=== PATIENT | female | born 1975 | race Caucasian/White ===

== ENCOUNTER 2017-11-28 08:34 | Emergency (ER) | payer BC, OTHER ==
[2017-11-28] MEDS ORDERED: Famotidine 20 MG/2 ML SDV IVPUSH ONE (08:57)
[2017-11-28] MEDS ORDERED: Pantoprazole 40 MG Vial IVPUSH ONE (08:57)
[2017-11-28] MEDS ORDERED: Lactated Ringers 1,000 ML IV ONE (08:57)
[2017-11-28] MEDS ORDERED: Ondansetron 4 MG/2 ML SDV IVPUSH ONE (08:57)
--- NOTE | 2017-11-28 08:57 | EDM.PDOC ---
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 B-1 IM 11/28/17 10:35 100 mg ONETIME ONE Administration - Radiology Interpretation Free Text/Narrative:: Heart monitor shows normal sinus rhythm with average heart rate in the high 50s to 60s with no ectopy or arrhythmia. Secondary to patient's tremors artifactual recording of pulses in the 100s by telemetry Acute abdominal x-rays shows evidence of probable mild pulmonary obstructive disease with no cardiomegaly, pulmonary infiltrates, CHF, free air, fluid levels , ileus, obstruction, intra-abdominal calcifications, etc. Mild amount of stool present. Large gastric bubble with otherwise nonspecific gaseous pattern Departure - Departure Time of Disposition: 11:10 Disposition: DC/Tfer to Acute Hospital 02 Condition: Fair Clinical Impression: Hypokalemia, Alcohol abuse, Right bundle branch block (RBBB), Hypomagnesemia, Dehydration, Mixed anxiety depressive disorder, Hypothyroidism (acquired), Macrocytosis without anemia, Bulimia nervosa, Elevated LFTs, Lactic acid increased Abdominal pain Qualifiers: Abdominal location: generalized Qualified Code(s): R10.84 - Generalized abdominal pain - Discharge Information Referrals: Fannie Villafana PA [Primary Care Provider] - Forms: ED Department Discharge, Interfacility Transfer [facility] Additional Instructions: 1. Have your mother drive you to [facility] for direct admission 2. Okay to have ice chips and sips of water in route but no other significant food intake 3. Sedation precautions as discussed - Problem List & Annotations (1) Abdominal pain SNOMED Code(s): 56681157 Code(s): R10.9 - UNSPECIFIED ABDOMINAL PAIN Status: Acute Priority: High Current Visit: Yes Onset Date: 11/27/17 Annotation/Comment:: Nonspecific abdominal pain with no direct evidence of pancreatitis despite elevated LFTs with normal lipase and amylase. Continue to observe her abdominal status closely with consideration of further workup, including possible abdominal ultrasound, CT scan of the abdomen and pelvis, etc. depending on her clinical course. Telephone consultation with [facility] initially at 10: 30 a.m. and then at 10:[address] Lozada, hospitalist, who does accept the patient for direct admission by private automobile, with no further treatment recommendations given. Note high-dose IV Pepcid and IV Protonix given as GI prophylaxis Qualifiers: Abdominal location: generalized Qualified Code(s): R10.84 - Generalized abdominal pain (2) Alcohol abuse SNOMED Code(s): 32970630 Code(s): F10.10 - ALCOHOL ABUSE, UNCOMPLICATED Status: Chronic Priority: High Current Visit: Yes Annotation/Comment:: Long history of alcohol abuse as above with relapse since her divorce in September 2017. Emotional support provided. Recommend psychiatric consultation by accepting providers. Only mildly increased alcohol level as above. Some evidence of withdrawal symptoms including tremors with IV Ativan also given. No previous history of alcohol- induced seizures. She seems open to alcohol treatment. (3) Bulimia nervosa SNOMED Code(s): 76872941 Code(s): F50.2 - BULIMIA NERVOSA Status: Chronic Priority: Medium Current Visit: Yes Annotation/Comment:: Exacerbation of her bulimia since September 2017, including yesterday evening as above. (4) Dehydration SNOMED Code(s): 83284801 Code(s): E86.0 - DEHYDRATION Status: Acute Priority: Medium Current Visit: Yes Onset Date: 11/28/17 Annotation/Comment:: Some mild hypotension secondary to her bulimia, nausea/emesis, etc. with overall good response to 1 L IV bolus of lactated Ringer's. Further IV hydration depending on her clinical course with the patient tolerating ice chips prior to transfer. No significant nausea or additional episode of emesis in the emergency room with good response to IV Zofran (5) Hypokalemia SNOMED Code(s): 35850013 Code(s): E87.6 - HYPOKALEMIA Status: Acute Priority: Medium Current Visit: Yes Annotation/Comment:: IV lactated Ringer's as above. Note bulimia and additional and nausea/emesis as above. Change to observe closely by accepting providers (6) Hypomagnesemia SNOMED Code(s): 003786003 Code(s): E83.42 - HYPOMAGNESEMIA Status: Acute Priority: Medium Current Visit: Yes Onset Date: 11/28/17 Annotation/Comment:: Consider magnesium oxide supplementation (7) Hypothyroidism (acquired) SNOMED Code(s): 163001267 Code(s): E03.9 - HYPOTHYROIDISM, UNSPECIFIED Status: Acute Priority: Medium Current Visit: Yes Onset Date: 11/28/17 Annotation/Comment:: Newly diagnosed. Patient would benefit from low-dose Synthroid therapy with close follow-up by regular providers with recommended TSH in about 4 weeks. (8) Macrocytosis without anemia SNOMED Code(s): 880024239 Code(s): D75.89 - OTHER SPECIFIED DISEASES OF BLOOD AND BLOOD-FORMING ORGANS Status: Acute Priority: Medium Current Visit: Yes Onset Date: 11/28/17 Annotation/Comment:: Normal vitamin B-12 and folate acid levels as above with probable thiamine deficiency secondary to her alcohol abuse. Thiamine 100 mg given IM in the emergency room (9) Mixed anxiety depressive disorder SNOMED Code(s): 721605519 Code(s): F41.8 - OTHER SPECIFIED ANXIETY DISORDERS Status: Acute Priority : High Current Visit: Yes Annotation/Comment:: Note significant exacerbation since her divorce in September 2017. Emotional support provided. Psychiatric consultation recommended as above. She does have some outpatient psychotherapy available with last visit 2 days ago, however next evaluation not scheduled until late November. She denies any suicidal ideation, etc. (10) Right bundle branch block (RBBB) SNOMED Code(s): 67792411 Code(s): I45.10 - UNSPECIFIED RIGHT BUNDLE-BRANCH BLOCK Status: Chronic Priority: Medium Current Visit: Yes Onset Date: 01/28/13 Annotation/ Comment:: Known history of complete right bundle branch block with questionable anterior wall ischemia with no recent chest pain or anginal type symptoms. In addition, note stable chronic bradycardia secondary to her athletic condition with patient previously running marathons, etc. (11) Lactic acid increased SNOMED Code(s): 78734803 Code(s): E87.2 - ACIDOSIS Status: Acute Priority: High Current Visit: Yes Onset Date: 11/28/17 Annotation/Comment:: No evidence of sepsis by clinical exam, etc. Recommend repeat lactic acid level shortly after admission (12) Elevated LFTs SNOMED Code(s): 063209769 Code(s): R79.89 - OTHER SPECIFIED ABNORMAL FINDINGS OF BLOOD CHEMISTRY Status: Acute Priority: High Current Visit: Yes Onset Date: 11/28/17 Annotation/Comment:: Elevated LFTs likely secondary to alcohol abuse. Further GI workup as above - Problem List Review Problem List Initiated/Reviewed/Updated: Yes - My Orders Last 24 Hours: My Active Orders 11/28/17 08:45 CULTURE BLOOD [BC] Stat 11/28/17 08:57 Peripheral IV Care [RC] . DIRECTED Abdomen Series w Chest 1V [CR] Stat CULTURE URINE [RM] Stat H PYLORI STOOL ANTIGEN [MREF] Urgent UA W/MICROSCOPIC [URIN] Urgent Sodium Chloride 0.9% [Saline Flush] 10 ml FLUSH ASDIRECTED PRN Blood Culture x2 Reflex Set [OM.PC] Urgent Obtain Past Medical Record [OM.PC] Urgent Peripheral IV Insertion Adult [OM.PC] Stat Resuscitation Status Stat 11/28/17 08:58 Cardiac Monitoring [RC] . DIRECTED 11/28/17 09:15 CULTURE BLOOD [BC] Stat 11/28/17 09:46 EKG Documentation Completion [RC] ASDIRECTED 11/28/17 10:50 Communication Order [RC] ROUTINE 11/28/17 Breakfast Nothing Per Oral Diet [DIET] - Assessment/Plan Last 24 Hours: My Active Orders 11/28/17 08:45 CULTURE BLOOD [BC] Stat 11/28/17 08:57 Peripheral IV Care [RC] . DIRECTED Abdomen Series w Chest 1V [CR] Stat CULTURE URINE [RM] Stat H PYLORI STOOL ANTIGEN [MREF] Urgent UA W/MICROSCOPIC [URIN] Urgent Sodium Chloride 0.9% [Saline Flush] 10 ml FLUSH ASDIRECTED PRN Blood Culture x2 Reflex Set [OM.PC] Urgent Obtain Past Medical Record [OM.PC] Urgent Peripheral IV Insertion Adult [OM.PC] Stat Resuscitation Status Stat 11/28/17 08:58 Cardiac Monitoring [RC] . DIRECTED 11/28/17 09:15 CULTURE BLOOD [BC] Stat 11/28/17 09:46 EKG Documentation Completion [RC] ASDIRECTED 11/28/17 10:50 Communication Order [RC] ROUTINE 11/28/17 Breakfast Nothing Per Oral Diet [DIET] Assessment:: As above Plan: As above. Extensive precautions were given to the patient and her mother, who are in agreement with the treatment plan. See Patient Instructions for further treatment and plan. Private automobile transfer
[2017-11-28] MEDS: Sodium Chloride 0.9% 10 ML Syringe FLUSH PRN ×2 (09:10→09:17)
[2017-11-28 09:26] LABS: CHLORIDE,CL 99 mmol/L (98-107); SODIUM,NA 142 mmol/L (136-145)
[2017-11-28] MEDS ORDERED: Thiamine 200 MG/2 ML MDV IM ONE (10:34)
[2017-11-28] MEDS ORDERED: LORazepam 2 MG/ML MDV IVPUSH ONE (10:34)
== END 2017-11-28 11:10 ==
LOC: LL.ED 08:34
DX: R10.84 Generalized abdominal pain (principal); F10.10 Alcohol abuse, uncomplicated; E87.6 Hypokalemia; I45.10 Unspecified right bundle-branch block; E83.42 Hypomagnesemia; E86.0 Dehydration; F41.8 Other specified anxiety disorders; E03.9 Hypothyroidism, unspecified; F50.2 Bulimia nervosa; R00.1 Bradycardia, unspecified; D75.89 Other specified diseases of blood and blood-forming organs; Y90.0 Blood alcohol level of less than 20 mg/100 ml
CPT/HCPCS: 36415; 74022; 80053; 82150; 82607; 82746; 83605; 83690; 83735; 84443; 84550; 84703; 85025; 85610; 85730; 87040; 87804; 93005; 96361; 96372; 96374; 96375; 99285; C9113; G0480; J2060; J2405; J3411; J7050; J7120; S0028

== ENCOUNTER 2018-02-01 16:00 | Emergency (ER) | payer OTHER ==
[2018-02-01] MEDS ORDERED: Sodium Chloride 0.9% 10 ML Syringe FLUSH PRN (16:23)
[2018-02-01 16:45] LABS: CHLORIDE,CL 100 mmol/L (98-107); SODIUM,NA 143 mmol/L (136-145)
[2018-02-01] MEDS ORDERED: Potassium Chloride 20 MEQ Tab.ER PO ONE (16:50)
[2018-02-01] MEDS ORDERED: Potassium Chloride 10 MEQ in Premix Bag 1 BAG IV ONE ×3 (16:50→19:13)
[2018-02-01] MEDS ORDERED: LORazepam 2 MG/ML SDV IVPUSH ONE (17:00)
[2018-02-01] MEDS ORDERED: Sodium Chloride 0.9% 1,000 ML IV ONE (17:01)
[2018-02-01] MEDS ORDERED: Bacitracin/Neomycin/Polymyxin B Oint 0.9 GM U/D Packet TOP ONE (17:58)
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
== END 2018-02-01 19:30 ==
LOC: LL.ED 16:00
DX: S01.81XA Laceration without foreign body of other part of head, initial encounter (principal); S01.311A Laceration without foreign body of right ear, initial encounter; F10.129 Alcohol abuse with intoxication, unspecified; J45.909 Unspecified asthma, uncomplicated; W18.30XA Fall on same level, unspecified, initial encounter; W19.XXXA Unspecified fall, initial encounter; Z79.899 Other long term (current) drug therapy; W22.8XXA Striking against or struck by other objects, initial encounter; Y90.8 Blood alcohol level of 240 mg/100 ml or more
CPT/HCPCS: 12013; 36415; 70450; 80048; 84484; 84703; 85025; 93005; 96365; 96366; 99285; A9270-GY; G0480; J3480; J7030

== ENCOUNTER 2018-03-08 16:48 | Emergency (ER) | payer OTHER ==
[2018-03-08] MEDS ORDERED: Sodium Chloride 0.9% 10 ML Syringe FLUSH PRN ×2 (17:01→17:16)
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
[2018-03-08 17:28] LABS: CHLORIDE,CL 101 mmol/L (98-107); SODIUM,NA 147 mmol/L (136-145)
[2018-03-08] MEDS ORDERED: Ondansetron 4 MG/2 ML SDV IVPUSH ONE (17:28)
[2018-03-08] MEDS ORDERED: Dextrose 5%-Lactated Ringers 1,000 ML IV SCH (17:30)
[2018-03-08] MEDS: Potassium Chloride 10 MEQ in Premix Bag 1 BAG IV SCH ×3 (17:44→19:49)
[2018-03-08] MEDS ORDERED: Folic Acid 1 MG Tab PO ONE (17:44)
[2018-03-08] MEDS ORDERED: Thiamine 100 MG Tab PO ONE (17:45)
== END 2018-03-08 19:50 ==
LOC: LL.ED 16:48
DX: F10.129 Alcohol abuse with intoxication, unspecified (principal); E87.6 Hypokalemia; E86.0 Dehydration; F41.8 Other specified anxiety disorders; E03.9 Hypothyroidism, unspecified; J45.909 Unspecified asthma, uncomplicated; N17.9 Acute kidney failure, unspecified; E05.90 Thyrotoxicosis, unspecified without thyrotoxic crisis or storm; Z79.899 Other long term (current) drug therapy; Y90.8 Blood alcohol level of 240 mg/100 ml or more
CPT/HCPCS: 36415; 80053; 84484; 85025; 93005; 96365; 96366; 96375; 99285; A9270-GY; G0480; J2405; J3480; J7042; J7050

== ENCOUNTER 2018-07-14 20:47 | Emergency (ER) | payer OTHER ==
--- NOTE | 2018-07-14 20:57 | EDM.PDOC ---
ED HPI GENERAL MEDICAL PROBLEM - General Chief Complaint: Behavioral/Psych Stated Complaint: ETOH intoxication, history hypokalemia Time Seen by Provider: 07/14/18 20:50 Source of Information: Reports: Patient, Family (Ex [id number]. Cousin Jeni Lerner), Old Records ([facility] chart/EMR), Other (Multiple friends from ) History Limitations: Reports: Intoxication, Uncooperative - History of Present Illness INITIAL COMMENTS - FREE TEXT/NARRATIVE: The patient was brought to the emergency room via private automobile by multiple friends from and her cousin, Jeni Chaney, for evaluation of her persistent chronic and recurrent alcohol abuse and intoxication and requesting that the patient be admitted to psychiatric facility [facility] for alcohol treatment. They apparently previously called [facility] in [place], where the patient had previously undergone psychiatric treatment, with no beds available in that facility by their history. The patient has drank at least 750 ml of vodka since earlier this morning by their history, however the patient is uncertain how much alcohol she did actually drink today. She was apparently incarcerated for about 4 days secondary to a DUI with patient released yesterday morning with no restrictions. She has apparently had 3 DUIs in the last week. Per their history the patient did have some possible suicidal ideation earlier this evening stating "just let me go to bed and ," however the patient denies any suicidal ideation or previous plan at this time. The patient denies any chest pain/pressure, heart flutter, dizziness, orthostasis, orthopnea, diaphoresis, paresthesias, recent decreased exercise tolerance, or any other anginal-type symptoms. No recent history of abdominal pain, heartburn , nausea, diarrhea, melena, gross hematochezia, or any food intolerance, including fatty foods, etc.. She denies any post hematuria, colic, or other UTI symptoms. The patient also denies any recent fever, cough, wheezing, dyspnea, etc.. No history of recent pain or discomfort. Onset: Today, Unknown/Unsure Onset Date: 07/14/18 Context: Reports: Other (As above) Associated Symptoms: Denies: Confusion, Chest Pain, Cough, Diaphoresis, Fever/ Chills, Headaches, Loss of Appetite, Malaise, Nausea/Vomiting, Seizure, Shortness of Breath, Syncope, Weakness Treatments DISTRICT RANGER: Reports: Other (see below) (None) - Related Data Allergies Allergy/AdvReac Type Severity Reaction Status Date / Time No Known Allergies Allergy Verified 07/14/18 21:30 Home Meds: Home Meds Multivitamin [Multi-Day Vitamins] 1 each PO DAILY 07/14/18 [History] Potassium Chloride [Klor-Con 10] 10 meq PO DAILY 07/14/18 [History] Past Medical History HEENT History: Reports: Allergic Rhinitis, Impaired Vision, Sinusitis, Other ( See Below). Denies: Cataract, Glaucoma, Hard of Hearing, Macular Degeneration, Retinal Detachment Other HEENT History: Patient wears glasses. Patient has seasonal allergies, animal allergies, etc. with secondary recurrent sinusitis. Cardiovascular History: Reports: Arrhythmia, Other (See Below). 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 Complete right bundle branch block. Patient does not know her cholesterol status. Respiratory History: Reports: Asthma, Bronchitis, Recurrent, Other (See Below). Denies: COPD, Intubation, Difficult, PE, Pneumonia, Recurrent, Pneumothorax, Sleep Apnea, TB Other Respiratory History: Exercise-induced asthma as a teenager nonproblematic at this time. Gastrointestinal History: Reports: None. Denies: Bowel Obstruction, Celiac Disease, Cholelithiasis, GERD, GI Bleed, Hepatitis, Hiatal Hernia, Inflammatory Bowel Disease, Irritable Bowel Syndrome, Jaundice, Pancreatitis, PUD Genitourinary History: Reports: Acute Renal Failure, Other (See Below). Denies : Chronic Renal Insuffiency, Dialysis, Renal Calculus, STD, Urinary Incontinence , UTI, Recurrent Other Genitourinary History: Acute renal failure on 02/24/13 secondary to herpes zoster infection BUSINESS ARCHITECT History: Reports: , Therapeutic . Denies: Dysfunctional Uterine Bleeding, Endometriosis, Fibroids, Spontaneous : 5 Para: 3 Other BUSINESS ARCHITECT History: One with therapeutic at 5-1/2 months secondary to genetic abnormality. Another with intrauterine demise secondary to probable nuchal cord at about 5 months gestation with induced delivery. LMP about one month ago which was normal. secondary to breech presentation otherwise , although she did have some problems with hyperthyroidism during her pregnancies. Musculoskeletal History: Reports: None. Denies: Amputation, Arthritis, Back Pain, Chronic, Fracture, Gout, Neck Pain, Chronic, Osteoarthritis, RA, SLE Neurological History: Reports: None. Denies: Cerebral Aneurysms, Concussion, CVA, Headaches, Chronic, Head Trauma, Migraines, MS, Parkinson's, Reflex Sympathetic Dystrophy, Seizure, TIA Psychiatric History: Reports: Addiction, Anxiety, Depression, Eating Disorders, Psych Hospitalization(s), Other (See Below). Denies: Abuse, Victim of, ADD, ADHD Other Psychiatric History: History of alcohol addiction with last inpatient treatment for about 2 months in [place] in March and April 2018 with previous treatment in September 2017 and additional multiple previous inpatient substance abuse and psychiatric hospitalizations in the past. history of alcohol abuse abuse since age 39. Additional history of bulimia in her teenage years. Endocrine/Metabolic History: Reports: Hyperthyroidism, Other (See Below). Denies: Diabetes, Type I, Diabetes, Type II, Diabetes Mellitus, Type 3c, Hypothyroidism, IDDM Other Endocrine/Metabolic History: Hyperthyroidism during as above. Hypokalemia. Hypomagnesemia. Hematologic History: Reports: None. Denies: Anemia, Blood Transfusion(s), Iron Deficiency Immunologic History: Reports: None. Denies: AIDS, HIV, SLE Oncologic (Cancer) History: Reports: None. Denies: Basal Cell Carcinoma, Breast , Cervix, Hodgkin's Lymphoma, Leukemia, Lung, Lymphoma, Malignant Melanoma, Non- Hodgkin's Lymphoma, Squamous Cell Carcinoma Dermatologic History: Reports: Other (See Below). Denies: Eczema, Psoriasis Other Dermatologic History: Acne vulgaris - Infectious Disease History Infectious Disease History: Reports: None, Chicken Pox, Mononucleosis (At age 31 ), Shingles (Herpes zoster in the left periauricular, facial, and cervical region on 02/24/13). Denies: C-Difficile, Meningitis, MRSA, Mumps, Pertussis ( Whooping Cough), Rubella, Scarlet Fever, TB, VRE - Past Surgical History Head Surgeries/Procedures: Reports: None HEENT Surgical History: Reports: Oral Surgery, Other (See Below). Denies: Adenoidectomy, Cataract Surgery, Eye Surgery, LASIK, Myringotomy w Tube(s), Naso -Sinus Surgery, Tonsillectomy Other HEENT Surgeries/Procedures: Dental extraction Cardiovascular Surgical History: Reports: None. Denies: Varicose Respiratory Surgical History: Reports: None. Denies: Thoracentesis GI Surgical History: Reports: None. Denies: Appendectomy, Cholecystectomy, Colonoscopy, EGD, Hernia, Abdominal, Hernia, Inguinal, Hernia Repair/Other Female Surgical History: Reports: D&C, Dilitation & Evacuation, Other (See Below). Denies: Tubal Ligation Other Female Surgeries/Procedures: Therapeutic procedures secondary to pregnancies as above Endocrine Surgical History: Reports: None Neurological Surgical History: Reports: None. Denies: C-Spine, Discectomy, Laminectomy, Lumbar Spine, Sacral Spine, Spinal Fusion, Thoracic Spine, Vertebroplasty Musculoskeletal Surgical History: Reports: None. Denies: Arthroscopic Procedure , Carpal Tunnel, Ganglion Cyst, Joint Replacement, ORIF, Shoulder Surgery Oncologic Surgical History: Reports: None Dermatological Surgical History: Reports: None - Past Imaging History Past Imaging History: Reports: CAT Scan (CT of the head on 02/01/18. CT of the sinuses on 07/26/09.), Ultrasound (Multiple OB ultrasounds) Social & Family History - Family History HEENT: Reports: None. Denies: Cataract, Glaucoma, Macular Degeneration, Retinal Detachment Cardiac: Reports: High Cholesterol, Other (See Below). Denies: Afib, AICD, Aneurysm, Arrhythmia, Blood Clots/VTE/DVT, CAD, Heart Failure, Hypertension, MS , PVD/COD, Syncope Other Cardiac Family History: Father with hyperlipidemia Respiratory: Reports: COPD, Other (See Below). Denies: Asthma, PE, Pneumothorax , Sleep Apnea Other Respiratory Family Hisory: Father with COPD with history of tobacco use GI: Reports: Colon Polyps, GERD, PUD, Other (See Below). Denies: Celiac Disease , Cholelithiasis, GI bleed, Inflammatory Bowel Disease, Irritable Bowel Syndrome Other GI Family History: Parents with benign colonic polyps in in their 50s. Mother with GERD and peptic ulcer disease : Reports: None. Denies: Renal Calculus, Renal Disease/Insufficiency OBGYN: Reports: None. Denies: Dysfunctional uterine bleeding, Endometriosis, Fibroids, Recurrent Spontaneous Musculoskeletal: Reports: None. Denies: Arthritis, Gout, RA, SLE Neurological: Reports: Alzheimers Disease, CVA, Dementia, Other (See Below). Denies: Cerebral Aneurysms, Migraines, MS, Parkinson's, Seizure, TIA Other Neurological Family History: Paternal grandmother with organic brain syndrome. Father with CVA at age 72 Psychiatric: Reports: Anxiety, Depression, Other (See Below). Denies: Abuse, Victim of, ADD, ADHD, Psych Hospitalization(s), PTSD, Suicide Attempt Other Psychiatric Family History: Anxiety depression disorder in paternal grandmother Endocrine/Metabolic: Reports: None. Denies: Diabetes, Gestational, Diabetes, Type I, Diabetes, type II, Diabetes Mellitus, Type 3c, Hypothyroidism, IDDM Hematologic: Reports: None. Denies: Anemia Immunologic: Reports: None. Denies: AIDS, HIV, SLE Dermatologic: Reports: None. Denies: Eczema, Psoriasis Oncologic: Reports: Metastatic, Prostate, Renal, Skin. Denies: Breast, Cervix, Colon, Hodgkin's Lymphoma, Leukemia, Non-Hodgkin's Lymphoma Other Oncologic Family History: Father with recurrent unknown type of skin cancer. Paternal grandfather with fatal metastatic prostate cancer at age 72. Father with prostate cancer. Paternal grandmother with renal cancer in her 70s - Tobacco Use Smoking Status *Q: Never Smoker Tobacco Use Within Last Twelve Months: No Used Tobacco, but Quit: No Smoking Cessation Information Provided To Patient: No Second Hand Smoke Exposure: No Second Hand Smoke Education Provided: No - Caffeine Use Caffeine Use: Reports: Soda - Alcohol Use Alcohol Use History: Yes Days Per Week of Alcohol Use: 7 Number of Drinks Per Day Comment: Alcohol abuse history as above. Date of Last Drink: 07/14/18 Alcohol Use in Last Twelve Months: Yes Alcohol Use Frequency: Binges - Recreational Drug Use Recreational Drug Use: No Recreational Drug Type: Denies: Amphetamines (Speed), Cocaine, Heroin, Inhalants (Glues, Solvents, Aerosols), LSD (Acid), Marijuana/Hashish, Methamphetamine, Morphine, Oxycodone - Living Situation & Occupation Living situation: Reports: (September 2017. 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 ED EXAM, GENERAL - Physical Exam Exam: See Below Exam Limited By: No Limitations General Appearance: Alert, WD/WN, No Apparent Distress, Anxious (Moderate), Other (Moderate intoxication) Eye Exam: Bilateral Eye: EOMI, Normal Inspection (No nystagmus), Periorbital Changes Ears: Normal External Exam, Normal Canal, Hearing Grossly Normal, Normal TMs Nose: Normal Inspection, Normal Mucosa, No Blood Throat/Mouth: Normal Inspection, Normal Lips, Normal Teeth, Normal Gums, Normal Oropharynx, Normal Voice, No Airway Compromise. No: Dysphagia, Perioral Cyanosis Head: Atraumatic, Normocephalic. No: Facial Tenderness, Sinus Tenderness Neck: Normal Inspection, Supple, Non-Tender, Full Range of Motion. No: Lymphadenopathy (L), Lymphadenopathy (R), Thyromegaly Respiratory/Chest: No Respiratory Distress, Lungs Clear, Normal Breath Sounds, No Accessory Muscle Use, Chest Non-Tender. No: Pleural Rub, Retractions Cardiovascular: Normal Peripheral Pulses, Regular Rate, Rhythm, No Edema, No Gallop, No JVD, No Murmur, No Rub. No: Gallop/S3, Gallop/S4, Friction Rub Peripheral Pulses: 2+: Radial (L), Radial (R), Dorsalis Pedis (L), Dorsalis Pedis (R) GI/Abdominal: Normal Bowel Sounds, Soft, Non-Tender, No Organomegaly, No Distention, No Abnormal Bruit, No Mass. No: Guarding (Female) Exam: Deferred Rectal (Female) Exam: Deferred Back Exam: Normal Inspection, Full Range of Motion. No: CVA Tenderness (L), CVA Tenderness (R), Muscle Spasm Extremities: Normal Inspection, Normal Range of Motion, Non-Tender, No Pedal Edema, Normal Capillary Refill. No: Cely's Sign Neurological: Alert, Oriented, CN II-XII Intact, Normal Reflexes (Negative Babinski's), No Motor/Sensory Deficits, Other (Moderate intoxication) Psychiatric: Anxious (Moderate), Depressed Mood (Moderate with good eye contact and no suicidal ideation by patient history). No: Flat Affect, Tearful Skin Exam: Warm, Dry, Intact, Normal Color, No Rash, Stud(s), Tattoo(s). No: Diaphoretic, Ecchymosis, Jaundice, Petechiae, Wound/Incision Lymphatic: No Adenopathy Course - Vital Signs Last Recorded V/S: Last Vital Signs Temp 36.9 C 07/14/18 21:25 Pulse 79 07/14/18 21:25 Resp 19 07/14/18 21:25 BP 107/68 07/14/18 21:25 Pulse Ox 96 07/14/18 21:25 Vital Signs - 24 hr 07/14/18 07/14/18 07/14/18 20:47 21:20 21:25 Temperature [ 36.9 C 36.9 C Temporal] Pulse, 83 79 79 Peripheral [ Brachial] Respiratory 19 18 19 Rate Blood Pressure 101/55 L 107/63 107/68 [Upper Arm] O2 Sat by Pulse 97 97 96 Oximetry - Orders/Labs/Meds Orders: Active Orders 24 hr Category Date Time Status Obtain Past Medical Record [OM.PC] Routine Oth 07/14/18 20:57 Active Labs: She refused ordered laboratories Meds: None - Radiology Interpretation Free Text/Narrative:: None Departure - Departure Time of Disposition: 21:40 Disposition: Against Medical Advice 07 Condition: Poor Clinical Impression: Mixed anxiety depressive disorder, Alcohol abuse, Hypokalemia - Discharge Information *PRESCRIPTION DRUG MONITORING PROGRAM REVIEWED*: Not Applicable *COPY OF PRESCRIPTION DRUG MONITORING REPORT IN PATIENT PHILILP: Not Applicable Referrals: Fannie Villafana PA [Primary Care Provider] - Forms: ED Department Discharge Additional Instructions: 1. Follow-up with [facility] in [facility] in the a.m. for admission into their alcohol treatment program 2. Compliance with all medications, including potassium supplements, etc. strongly encouraged 3. Family member should stay with you this evening with strict no driving, fall precautions, and safety proofing/suicide prevention of the home as discussed - Problem List & Annotations (1) Alcohol abuse SNOMED Code(s): 24691275 Code(s): F10.10 - ALCOHOL ABUSE, UNCOMPLICATED Status: Chronic Priority: High Current Visit: No Annotation/Comment:: Long history of alcohol abuse as above. Her friends and family are in the emergency room today with multiple attempts both by me and the above parties to have the patient consider referral for inpatient treatment. She openly appears pressured by her family and friends and did become somewhat agitated with their opinions. She refuses any further blood work, referral for inpatient treatment, etc. with patient planning to contact the outpatient clinic at [facility] in [place] tomorrow morning. Extensive Emotional support was provided. Note recurrent relapses since her divorce in September 2017. No previous history of alcohol-induced seizures. She only seems open to outpatient alcohol treatment at this time. (2) Mixed anxiety depressive disorder SNOMED Code(s): 474655522 Code(s): F41.8 - OTHER SPECIFIED ANXIETY DISORDERS Status: Acute Priority : High Current Visit: No Annotation/Comment:: Once again the patient denies suicidal ideation despite previous history from her family and friends as above. The patient's cousin and ex [id number] were advised to stay with the patient today until she can arrange for treatment tomorrow as per discharge instructions. They do agree to prevent her from driving, take away all keys, and safety proof the home for firearms, etc. Emotional support was once again provided as above. The patient did leave AMA. (3) Hypokalemia SNOMED Code(s): 35441676 Code(s): E87.6 - HYPOKALEMIA Status: Acute Priority: Medium Current Visit: No Annotation/Comment:: The patient refused all blood work and was only interested about her potassium level. Note that she has been noncompliant with her supplements for quite some time with medication compliance strongly encouraged. Close follow-up by her regular provider also encouraged. - Problem List Review Problem List Initiated/Reviewed/Updated: Yes - My Orders Last 24 Hours: My Active Orders 07/14/18 20:57 Obtain Past Medical Record [OM.PC] Routine - Assessment/Plan Last 24 Hours: My Active Orders 07/14/18 20:57 Obtain Past Medical Record [OM.PC] Routine Assessment:: As above Plan: As above. Extensive precautions were given to the patient, who is in agreement with the treatment plan. See Patient Instructions for further treatment and plan. Note majority of history was updated from previous medical records.
== END 2018-07-14 21:37 | disposition left against medical advice (07) ==
LOC: LL.ED 20:47
DX: F10.129 Alcohol abuse with intoxication, unspecified (principal); E87.6 Hypokalemia; F41.8 Other specified anxiety disorders
CPT/HCPCS: 99283

== ENCOUNTER 2019-03-29 22:30 | Emergency (ER) | payer OTHER ==
--- NOTE | 2019-03-29 23:29 | EDM.PDOC ---
ED HPI GENERAL MEDICAL PROBLEM - General Chief Complaint: General Time Seen by Provider: 03/29/19 22:32 - History of Present Illness INITIAL COMMENTS - FREE TEXT/NARRATIVE: Patient is a 43-year-old who was brought in by boyfriend for evaluation patient was recently arrested and released to boyfriend secondary to DUI at this time we interviewed the patient. Patient is alert and oriented to time and place was able to answer all her questions appropriately. Refused all and any medical care at this time at this time we will release her from the ER secondary to refusal of medical care. Onset: Today - Related Data Allergies Allergy/AdvReac Type Severity Reaction Status Date / Time No Known Allergies Allergy Verified 07/14/18 21:30 Home Meds: Home Meds Multivitamin [Multi-Day Vitamins] 1 each PO DAILY 07/14/18 [History] Naltrexone 50 mg PO DAILY #30 tab 09/23/18 [Rx] Naltrexone HCl [Revia] 50 mg PO DAILY 09/23/18 [History] Potassium Chloride 20 meq PO DAILY 09/23/18 [History] Potassium Chloride 20 meq PO TID 30 Days #90 tablet.er 09/23/18 [Rx] Sertraline [Zoloft] 25 mg PO DAILY 30 Days #30 tablet 09/23/18 [Rx] Past Medical History HEENT History: Reports: Allergic Rhinitis, Impaired Vision, Sinusitis, Other ( See Below) Other HEENT History: Patient wears glasses. Patient has seasonal allergies, animal allergies, etc. with secondary recurrent sinusitis. 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 Complete right bundle branch block. Patient does not know her cholesterol status. Respiratory History: Reports: Asthma, Bronchitis, Recurrent, Other (See Below) Other Respiratory History: Exercise-induced asthma as a teenager nonproblematic at this time. Gastrointestinal History: Reports: None Genitourinary History: Reports: Acute Renal Failure, Other (See Below) Other Genitourinary History: Acute renal failure on 02/24/13 secondary to herpes zoster infection CAVALRY OFFICER History: Reports: , Therapeutic Other CAVALRY OFFICER History: One with therapeutic at 5-1/2 months secondary to genetic abnormality. Another with intrauterine demise secondary to probable nuchal cord at about 5 months gestation with induced delivery. LMP about one month ago which was normal. secondary to breech presentation otherwise , although she did have some problems with hyperthyroidism during her pregnancies. Musculoskeletal History: Reports: None Neurological History: Reports: None Psychiatric History: Reports: Addiction, Anxiety, Depression, Eating Disorders, Psych Hospitalization(s), Other (See Below) Other Psychiatric History: History of alcohol addiction with last inpatient treatment for about 2 months in [place] in March and April 2018 with previous treatment in September 2017 and additional multiple previous inpatient substance abuse and psychiatric hospitalizations in the past. history of alcohol abuse abuse since age 39. Additional history of bulimia in her teenage years. Personality disorder suspected. Endocrine/Metabolic History: Reports: Hyperthyroidism, Other (See Below) Other Endocrine/Metabolic History: Hyperthyroidism during as above. Hypokalemia. Hypomagnesemia. Hematologic History: Reports: None Immunologic History: Reports: None Oncologic (Cancer) History: Reports: None Dermatologic History: Reports: Other (See Below) Other Dermatologic History: Acne vulgaris - Infectious Disease History Infectious Disease History: Reports: None, Chicken Pox, Mononucleosis, Shingles - Past Surgical History Head Surgeries/Procedures: Reports: None HEENT Surgical History: Reports: Oral Surgery, Other (See Below) Other HEENT Surgeries/Procedures: Dental extraction Cardiovascular Surgical History: Reports: None Respiratory Surgical History: Reports: None GI Surgical History: Reports: None Female Surgical History: Reports: D&C, Dilitation & Evacuation, Other (See Below) Other Female Surgeries/Procedures: Therapeutic procedures secondary to pregnancies as above Endocrine Surgical History: Reports: None Neurological Surgical History: Reports: None Musculoskeletal Surgical History: Reports: None Oncologic Surgical History: Reports: None Dermatological Surgical History: Reports: None - Past Imaging History Past Imaging History: Reports: CAT Scan (CT of the head on 02/01/18. CT of the sinuses on 07/26/09.), Ultrasound (Multiple OB ultrasounds) Social & Family History - Family History HEENT: Reports: None Cardiac: Reports: High Cholesterol, Other (See Below) Other Cardiac Family History: Father with hyperlipidemia Respiratory: Reports: COPD, Other (See Below) Other Respiratory Family Hisory: Father with COPD with history of tobacco use GI: Reports: Colon Polyps, GERD, PUD, Other (See Below) Other GI Family History: Parents with benign colonic polyps in in their 50s. Mother with GERD and peptic ulcer disease : Reports: None OBGYN: Reports: None Musculoskeletal: Reports: None Neurological: Reports: Alzheimers Disease, CVA, Dementia, Other (See Below) Other Neurological Family History: Paternal grandmother with organic brain syndrome. Father with CVA at age 72 Psychiatric: Reports: Anxiety, Depression, Other (See Below) Other Psychiatric Family History: Anxiety depression disorder in paternal grandmother Endocrine/Metabolic: Reports: None Hematologic: Reports: None Immunologic: Reports: None Dermatologic: Reports: None Oncologic: Reports: Metastatic, Prostate, Renal, Skin Other Oncologic Family History: Father with recurrent unknown type of skin cancer. Paternal grandfather with fatal metastatic prostate cancer at age 72. Father with prostate cancer. Paternal grandmother with renal cancer in her 70s - Caffeine Use Caffeine Use: Reports: Coffee, Soda, Tea - Living Situation & Occupation Living situation: Reports: (September 2017. 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) ED ROS GENERAL - Review of Systems Review Of Systems: Unable To Obtain ED EXAM, GENERAL - Physical Exam Exam: Not Obtained (patient refused all medical care) General Appearance: Alert Departure - Departure Time of Disposition: 22:40 Disposition: Left Without Being Seen 07 Clinical Impression: Patient left without being seen - Discharge Information *PRESCRIPTION DRUG MONITORING PROGRAM REVIEWED*: Not Applicable *COPY OF PRESCRIPTION DRUG MONITORING REPORT IN PATIENT PHILLIP: Not Applicable Referrals: Inga-Lexus Castrejon MD [Primary Care Provider] - Forms: ED Department Discharge Care Plan Goals: Patient released to self
== END 2019-03-29 22:43 | disposition left against medical advice (07) ==
LOC: LL.ED 22:30
DX: Z53.21 Procedure and treatment not carried out due to patient leaving prior to being seen by health care provider (principal)

== ENCOUNTER 2019-03-29 23:41 | Emergency (ER) | payer OTHER ==
[2019-03-29] MEDS: Potassium Chloride 20 MEQ Tab.ER PO ONE (23:45)
[2019-03-29] MEDS ORDERED: Potassium Chloride 20 MEQ Tab.ER ONE (23:45)
[2019-03-30] MEDS: Potassium Chloride 20 MEQ Tab.ER PO ONE (00:03)
--- NOTE | 2019-03-30 08:41 | ER ---
HPI: The is a 43-year-old who was brought into the ER after being arrested for clearance for transfer to detox. ROS: Patient has no complaints at this time. Patient appears to be intoxicated. Physical Exam: At this time, the patient was examined. The patient appeared to be intoxicated. She answered all questions appropriately. She was alert and oriented. Denies pain. At this time , I went ahead and listened to her heart and lungs which sounded normal. Normal rate and rhythmn, Normal breathing effort. Clear to auscultation. Assessment: Intoxication; Cleared for Detox Plan: After interviewing Margot she did admit that she was on potassium 40 mEq twice a day, so at this time we decided to give her 40 mEq so that she could take on her way to detox. The patient refused labs earlier today. Therefore, we went ahead and just treated her with her home medications. The patient was cleared for transport at this time and arresting officers took custody of her. At this time, she is on her way to detox. LILIAN Nunes MD /[id number] MTDD
== END 2019-03-29 23:53 ==
LOC: LL.ED 23:41
DX: F10.929 Alcohol use, unspecified with intoxication, unspecified (principal)
CPT/HCPCS: 99282; A9270-GY

== ENCOUNTER 2019-11-11 10:30 | Emergency (ER) | payer SELFPAY ==
[2019-11-11 11:01] LABS: CHLORIDE,CL 107 mmol/L (98-107); SODIUM,NA 145 mmol/L (136-145)
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
== END 2019-11-11 11:15 | disposition home or self-care (01) ==
LOC: LL.ED 10:30
DX: E87.6 Hypokalemia (principal); F10.20 Alcohol dependence, uncomplicated
CPT/HCPCS: 36415; 80048; 99284